=== PATIENT | male | born 1965 | race Caucasian/White ===

== ENCOUNTER 2024-04-29 19:06 | Observation (INO) | payer BC ==
[~2024-04-29] VITALS: Ht 170.2 cm; Wt 79.7 kg
[~2024-04-29 19:06] MED LIST: AMOXICILLIN 8751 TAB PO; CELEXA 20MG20 MG/TAB PO; PRINZIDE 25 MG-1 TAB PO; ROXICODONE 55 MG/TAB PO; TOPROL XL100 MG PO
[2024-04-29] MEDS ORDERED: NS 1,000 ML IV ONE (19:30)
[2024-04-29] MEDS ORDERED: Ondansetron 4 MG/2 ML VIAL IV ONE (19:30)
[2024-04-29] MEDS ORDERED: Ketorolac 30 MG/ML VIAL IV ONE (19:30)
[2024-04-29 19:54] LABS: PH 5.5 (5.0-8.5); URINE APPEARANCE CLEAR (CLEAR/HAZY); URINE BLOOD 2+ (NEGATIVE); URINE COLOR YELLOW (YELLOW); URINE GLUCOSE NEGATIVE (NEGATIVE); URINE KETONE NEGATIVE (NEGATIVE); URINE NITRATE NEGATIVE (NEGATIVE); URINE PROTEIN(semi-quant) NEGATIVE (NEGATIVE)
[2024-04-29 19:55] LABS: BASO % 0.3 % (0.0-2.0); EOS # 0.2 K/mm3 (0.0-0.7); EOS % 1.6 % (0.0-4.0); GRAN # 10.8 K/mm3 (1.4-6.5); GRAN % 84.1 % (42.2-75.2); HEMOGLOBIN 12.3 g/dl (13.5-18.0); LYMPH # 1.1 K/mm3 (1.2-3.4); LYMPH % 8.7 % (20.0-51.0); MEAN CELL VOLUME 94 fl (80.0-100.0); MEAN CORPUSCULAR HEMOGLOBIN 32 pg (27-31); MEAN CORPUSCULAR HGB CONC 34 g/dl (33.0-37.0); MEAN PLATELET VOLUME 10.2 fl (7.4-10.4); MONO # 0.6 K/mm3 (0.1-0.6); MONO % 4.7 % (1.7-9.3); RED BLOOD COUNT 3.83 M/mm3 (4.20-5.60); REDCELL DISTRIBUTION WIDTH-CV 12.4 % (11.5-14.5)
[2024-04-29 19:59] LABS: ALBUMIN 3.6 g/dL (3.5-5.0); BILIRUBIN,TOTAL 1.5 mg/dL (0.2-1.2); CALCIUM 9.2 mg/dL (8.4-10.2); CREATININE, serum 1.44 mg/dL (0.72-1.25); POTASSIUM 3.7 mEq/L (3.5-4.5); TOTAL PROTEIN 7.4 g/dl (6.2-8.1)
[2024-04-29 20:13] LABS: HEMATOCRIT 36.1 % (42.0-52.0); PLATELET COUNT 238 K/mm3 (130-400)
[2024-04-29 20:15] LABS: COLLECTION METHOD CLEAN CATCH
[2024-04-29] MEDS ORDERED: Iohexol 300 - 100 ML VIAL IV ONE (20:54)
[2024-04-29] MEDS ORDERED: NS 50 ML IV ONE (20:55)
[2024-04-29] MEDS ORDERED: Ondansetron 4 MG/2 ML VIAL IV PRN (22:00)
[2024-04-29] MEDS ORDERED: NS 1,000 ML IV SCH (22:00)
[2024-04-29] MEDS ORDERED: Morphine 4 MG/ML VIAL IV PRN (22:00)
[2024-04-29 23:58] VITALS: BP 127/72; PULSE 72; TEMP 99.1
[2024-04-30] VITALS (18 sets, daily range): BP systolic 115–135; BP diastolic 43–74; PULSE 61–78; TEMP 98.1–100.1
--- NOTE | 2024-04-30 00:05 | NUR ---
Patient arrived to the floor at 2324 from the ED, A/Ox4, rated his abdominal pain at 3-4/10, reminded to call whenever pain increases, denies the need for pain meds at this time, admission assessment and intake done, medrec reviewed, hospital policies orientated, questions answered, denies further needs, call light and personal items within reach, will continue to monitor.
[2024-04-30] MEDS ORDERED: LR 1,000 ML IV SCH (07:45)
[2024-04-30] MEDS ORDERED: Scopolamine 1 MG Delivered 3-Day PATCH TD SCH (07:45)
--- NOTE | 2024-04-30 08:00 | NUR ---
PATIENT IS A&O X4. SHIFT ASSESSMENT COMPLETED. NO C/O PAIN OR N/V. PATIENT IS INDEPENDENT FOR ALL CARES AND MOBILITY. IV IS PATENT IN RAC. PATIENT IS NPO. PLANNING FOR SURGERY AROUND 1100. CONSENT SIGNED FOR SURGERY. RUNNING A LOW GRADE TEMP THIS MORNING. OTHER VSS. AT BEDSIDE AND AWARE OF PLAN. CALL LIGHT WITHIN REACH.
[2024-04-30] MEDS ORDERED: dexAMETHasone 10 MG/ML VIAL ONE (10:32)
[2024-04-30] MEDS ORDERED: NS 10 ML IV ONE (10:32)
[2024-04-30] MEDS ORDERED: Lidocaine PF 2% (20 MG/ML) 5 ML VIAL ONE (10:32)
[2024-04-30] MEDS ORDERED: Ondansetron 4 MG/2 ML VIAL ONE (10:32)
[2024-04-30] MEDS ORDERED: Ketorolac 30 MG/ML VIAL ONE (10:32)
[2024-04-30] MEDS ORDERED: Rocuronium 50 MG/5 ML Multi-Dose VIAL ONE (10:33)
[2024-04-30] MEDS ORDERED: fentaNYL 50 MCG/ML 2 ML VIAL ONE (10:33)
[2024-04-30] MEDS ORDERED: fentaNYL 50 MCG/ML 1 ML SYRINGE/VIAL [PACU/SDC ONLY] IV PRN (10:45)
[2024-04-30] MEDS ORDERED: droPERidol 2.5 MG/ML 2 ML VIAL IV PRN (10:45)
[2024-04-30] MEDS ORDERED: hydrALAZINE 20 MG/ML 1 ML VIAL IV PRN (10:45)
[2024-04-30] MEDS ORDERED: Ondansetron 4 MG/2 ML VIAL IV PRN (10:45)
[2024-04-30] MEDS ORDERED: HYDROmorphone 1 MG/1 ML SYRINGE [PACU/SDC ONLY] IV PRN (10:45)
--- NOTE | 2024-04-30 10:47 | NUR ---
PATIENT DOWN TO OR FOR PROCEDURE. IS WITH PATIENT.
--- NOTE | 2024-04-30 12:40 | NUR ---
PATIENT BROUGHT BACK UP TO ROOM FROM PACU. PATIENT IS DOING WELL. A&O X4. TOLERATING CLEAR FLUIDS. VSS. 3 SURGICAL INSERTION SITES ON ABDOMEN. 1 SITE ABOVE BELLY BUTTON AND 2 SITES ON LOWER ABDOMEN. SITES ARE CLEAN, DRY, AND INTACT.
--- NOTE | 2024-04-30 15:46 | NUR ---
rack production worker attempted to meet with patient but he was in surgery. SW attempted to meet with patient but he was asleep and hard to wake. SW contacted patient's , Loki Ball# [phone], to complete initial assessment. Patient lives in [place] with his . PCP is Dr. Mcdonald, Pharmacy is [facility]. No issues affording medications. Insurance is [employer]. No DPOA-HC and does not feel he would want to complete one during the hospital stay but could follow up with him. DME is CPAP. Patient's reports he is independent with [facility] and has transportation to and from appointments. Patient would like to return home at time of discharge. Discharge plan: Home
--- NOTE | 2024-04-30 18:00 | NUR ---
PATIENT IS AMBULATING INDEPENDENTLY AND URINATING WITHOUT ANY PROBLEMS. VSS. TOLERATING GENERAL DIET. NO C/O PAIN, NAUSEA, OR VOMITING.
--- NOTE | 2024-04-30 20:00 | NUR ---
Patient reports he's passing gas, tolerating fluids fine, INT'd at this time, denies further needs, will monitor.
--- NOTE | 2024-04-30 22:00 | NUR ---
PT AWAKE AND RESTING IN BED. NO SCHEDULED MEDS AT THIS TIME PER eMAR. DENIES PAIN. CALL LIGHT WITHIN REACH.
--- NOTE | 2024-04-30 22:08 | NUR ---
This nurse agree with shift assessment completed by HEATHER Wood.
[2024-05-01 00:26] VITALS: BP_SYST 118
[2024-05-01 03:23] VITALS: BP 112/69; PULSE 60; TEMP 97.9
[2024-05-01 05:16] VITALS: BP_SYST 112
--- NOTE | 2024-05-01 06:31 | NUR ---
Patient had an uneventful night, hoping to go home this morning, will report off to dayshift nurse.
[2024-05-01] MEDS ORDERED: AMOXICILLIN 8751 TAB PO (07:41)
--- NOTE | 2024-05-01 07:50 | NUR ---
PT RESTING IN BED. PT IS AXOX4. PT IS ON RA. PT'S VSS. PT EATING BREAKFAST. PT DENIES PAIN OR NAUSEA. BEDSIDE. PT HAS CALL LIGHT AND INSTRUCTED TO CALL WITH ALL NEEDS.
[2024-05-01 07:53] VITALS: BP 127/72; PULSE 47; TEMP 97.9
--- NOTE | 2024-05-01 08:37 | NUR ---
0820-DISCHARGE INSTRUCTIONS DISCUSSED WITH PT AND . ALL QUESTIONS ANSWERED. IV REMOVED. 0832-PT WHEELED OUT FOR DISCHARGE BY PCT WITH FAMILY.
[2024-05-01] MEDS ORDERED: Citalopram 20 MG TAB PO SCH (09:00)
[2024-05-01] MEDS ORDERED: LISINOPRIL 20 MG PO SCH (09:00)
[2024-05-01] MEDS ORDERED: HYDROCHLOROTHIAZIDE 25 MG PO SCH (09:00)
== END 2024-05-01 08:37 | disposition home or self-care (01) ==
LOC: COL.ER 19:06 → SURG 21:56
PROVIDERS: Nurse Practitioner Primary Care; ADMIT Surgery
DX: K35.891 Other acute appendicitis without perforation, with gangrene (principal); I10 Essential (primary) hypertension; G47.33 Obstructive sleep apnea (adult) (pediatric); F17.220 Nicotine dependence, chewing tobacco, uncomplicated; Z79.899 Other long term (current) drug therapy
CPT/HCPCS: G0378; J0690; J1100; J1885; J2405; J2543; J2704; J3010; J7030; J7120; Q9967